=== PATIENT | female | born 1955 | race Two or more races ===

== ENCOUNTER 2018-09-08 08:47 | Day surgery (SDC) | payer BC ==
[~2018-09-08] VITALS: Ht 154.9 cm; Wt 68.0 kg
[~2018-09-08 08:47] MED LIST: CALCIUM500 M3 PO; FISH OIL OMEGA1 EAC1 PO; MULTIVITAMINS1 EAC2 ORAL; prevacid PO; vit d PO
[2018-09-08] MEDS ORDERED: PROBIOTIC1 EAC2 PO (09:50)
[2018-09-08 10:01] VITALS: BP 124/72
--- NOTE | 2018-09-08 10:14 | Pre-Procedure Note/Attestation ---
Pre-Procedure Note/Attestation Complete Prior to Procedure Planned Procedure: not applicable Procedure Narrative: esophagogastroduodenoscopy AND COLONOSCOPY Indications for Procedure Pre-Operative Diagnosis: screening colon, GERD Attestation I attest that I discussed the nature of the procedure; its benefits; risks and complications; and alternatives (and the risks and benefits of such alternatives ), prior to the procedure, with the patient (or the patient's legal sales representative printing paper). I attest that, if there was a reasonable possibility of needing a blood transfusion, the patient (or the patient's legal sales representative printing paper) was given the [facility] standardized written summary, pursuant to the [place] Blood Safety Act ([place] Health and Safety Code # 1645, as amended). I attest that I re-evaluated the patient just prior to the surgery and that there has been no change in the patient's H&P, except as documented below: Galileo Yadav MD Sep 08, 2018 10:14
--- NOTE | 2018-09-08 10:15 | Short Stay Surgery H&P ---
History of Present Illness History of Present Illness Chief Complaint screening colon, melena HPI Zuly Mascorro is a 62 year old female who was admitted on for Abdominal Pain, Colon Screening Patient History Allergies: Coded Allergies: No Known Allergies (Unverified , 09/08/18) PAST MEDICAL HISTORY: (1) GERD (gastroesophageal reflux disease) Medication History Scheduled Calcium Carbonate (Calcium), 500 MG PO DAILY, (Reported) Lactobacillus Acidophilus (Probiotic), 1 EACH PO DAILY, (Reported) Multivitamins* (Multivitamins*), 1 TAB ORAL DAILY, (Reported) [place]-3/Dha/Epa/Fish Oil (Fish Oil [place]-3 Softgel), 1 EACH PO DAILY, (Reported) [prevacid], 1 CAP PO DAILY, (Reported) [vit d], 2,000 PO DAILY, (Reported) Review of Systems Cardiovascular: Reports: no symptoms Respiratory: Reports: no symptoms Skeletal: Reports: no symptoms Gastrointestinal: Reports: gastro esophageal reflux disease Genitourinary: Reports: no symptoms Neurologic: Reports: no symptoms Endocrine: Reports: no symptoms Hematologic: Reports: no symptoms Physical Exam Vital Signs Last Vital Signs Date Time Temp Pulse Resp B/P (MAP) Pulse Ox O2 Delivery O2 Flow Rate FiO2 09/08/18 10:02 Room Air 09/08/18 10:01 97.8 68 20 124/72 97 Skin: normal HENT: normal Heart: normal Lungs: normal Abdomen: normal Extremities: normal Plan Plan of Care esophagogastroduodenoscopy and colon Attestation Are the patient's medical conditions optimized for surgery? Attestation Response: yes Galileo Yadav MD Sep 08, 2018 10:15
[2018-09-08] MEDS ORDERED: fentaNYL 100 mcg/2 mL IV PRN ×2 (10:30→10:45)
[2018-09-08] MEDS ORDERED: DiphenhydrAMINE 50mg/ml Inj IVP PRN ×2 (10:30→10:45)
[2018-09-08] MEDS ORDERED: Midazolam 2mg/2ml Inj IVP PRN ×2 (10:30→10:45)
[2018-09-08] MEDS ORDERED: Atropine Inj 1mg/10ml Syr IV PRN ×2 (10:30→10:45)
[2018-09-08] MEDS ORDERED: Lidocaine 1% MPF 10mg/ml 5ml ONE (10:45)
[2018-09-08] MEDS ORDERED: Propofol 200mg/20ml IV ONE (10:45)
--- NOTE | 2018-09-08 10:46 | Anethesia Preoperative Eval ---
Anesthesia Pre-op PMH/ROS General Date of Evaluation: Sep 08, 2018 Time of Evaluation: 10:44 Anesthesiologist: nkechi ASA Score: ASA 2 Mallampati Score Class I : Soft palate, uvula, fauces, pillars visible Class II: Soft palate, uvula, fauces visible Class III: Soft palate, base of uvula visible Class IV: Only hard plate visible Mallampati Classification: Class II Surgeon: bev Diagnosis: gerd, colon screening Surgical Procedure: egd/colonoscopy Anesthesia History: none Social History: smoking - nonsmoker Family History: no anesthesia problems Allergies: Coded Allergies: No Known Allergies (Unverified , 09/08/18) Medications: see eMAR Patient NPO?: Yes Past Medical History Gastrointestinal/Genitourinary: Reports: GERD PSxH Narrative: tonsillectomy Anesthesia Pre-op Phys. Exam Physician Exam Last Vital Signs Date Time Temp Pulse Resp B/P (MAP) Pulse Ox O2 Delivery O2 Flow Rate FiO2 09/08/18 10:02 Room Air 09/08/18 10:01 97.8 68 20 124/72 97 Constitutional: NAD Neurologic: CN 2-12 intact Cardiovascular: RRR Respiratory: CTA Gastrointestinal: S/NT/ND Airway Exam Mallampati Score: Class II MO: full Neck: flexible TMD: 2fb ROM: full Anesthesia Pre-op A/P Studies Pre-op Studies: EKG - nsr Risk Assessment & Plan Assessment: asa2 Plan: mac Status Change Before Surgery: No Pre-Antibiotics Drug: Belkis Gold MD Sep 08, 2018 10:46
--- NOTE | 2018-09-08 11:28 | Endoscopy Procedure Note ---
Endoscopy Procedure Note General Indication for Procedure: escreening colon, GERD Procedures Performed: EGD, colonoscopy Operative Findings/Diagnosis: 2 colon polyps Specimen: yes Pt Tolerated Procedure Well: Yes Estimated Blood Loss: none Anesthesia Anesthesiologist: nkechi Anesthesia: MAC Inserted Devices Implant(s) used?: No Quality Quality of Bowel Preparation: Good Did scope reach the cecum?: Yes Was there any complications?: No GI Core Measures 50 yrs or older w/o bx or poly: No 10yrs. F/U not recommended: Yes If not recommended, why?: Above average risk 10 yrs. F/U needed: Yes 18 years or older w/prev. colo: No Galileo Yadav MD Sep 08, 2018 11:28
[2018-09-08 11:34] VITALS: BP 94/59
[2018-09-08 11:39] VITALS: BP 105/64
[2018-09-08 11:44] VITALS: BP 111/62
--- NOTE | 2018-09-08 11:49 | Immediate Post-Op Evaluation ---
Immediate Post-Op Evalulation Immediate Post-Op Evalulation Procedure: egd/colonoscopy/bx Date of Evaluation: Sep 08, 2018 Time of Evaluation: 11:46 IV Fluids: 350ml 0.9ns Blood Products: none Estimated Blood Loss: negligible Blood Pressure Systolic: 94 Blood Pressure Diastolic: 69 Pulse Rate: 70 Respiratory Rate: 18 O2 Sat by Pulse Oximetry: 100 Temperature (Fahrenheit): 97.3 Pain Score (1-10): 0 Nausea: No Vomiting: No Complications none Patient Status: awake, reacts, patent Hydration Status: adequate Drug: Belkis Gold MD Sep 08, 2018 11:49
--- NOTE | 2018-09-08 11:51 | 48 Hour Post Anesthesia Eval ---
Post Anesthesia Evaluation Procedure: egd/colonoscopy/bx Date of Evaluation: Sep 08, 2018 Time of Evaluation: 11:49 Blood Pressure Systolic: 103 0: 66 Pulse Rate: 69 Respiratory Rate: 18 Temperature (Fahrenheit): 97.3 O2 Sat by Pulse Oximetry: 100 Airway: patent Nausea: No Vomiting: No Pain Intensity: 0 Hydration Status: adequate Cardiopulmonary Status: stable Mental Status/LOC: patient returned to baseline Post-Anesthesia Complications: none Follow-up care needed: N/A Belkis Schilling MD Sep 08, 2018 11:51
[2018-09-08 11:59] VITALS: BP 138/79
[2018-09-08 12:15] VITALS: BP 134/80
--- NOTE | 2018-09-08 16:15 | Procedure Note ---
DATE OF PROCEDURE: 09/08/2018 SURGEON: Galileo Yadav M.D. PROCEDURE: Upper endoscopy with biopsy and colonoscopy with biopsy. ANESTHESIA: Per Dr. Farley. INSTRUMENT: Olympus adult flexible upper endoscope and colonoscope. INDICATION: Screening colonoscopy evaluation, chronic GERD. REASON FOR PROCEDURE: The procedure, risks, benefits, and possible consequences, including hemorrhage, aspiration, perforation and infection, and alternative treatments, were explained to the patient/legal guardian by Dr. Galileo Yadav and the patient/legal guardian understood and accepted these risks. PROCEDURE IN DETAIL: After informed consent was obtained and the patient was adequately sedated, Olympus upper endoscope was advanced from the mouth into the second portion of duodenum and retroflexion was performed in the stomach. The patient had evidence of diffuse gastritis. Random biopsy from antrum and body was obtained to rule out H. pylori infection. Otherwise, the rest of upper endoscopic examination was grossly within normal limits. At this time, the upper endoscope was retrieved and the patient was turned over for colonoscopy. First, rectal exam was performed which was normal. Then, the scope was advanced from rectum into the cecum and then subsequently into terminal ileum. Quality of prep overall was good. The patient had two polyps, one in the ascending colon, measured roughly about 5 to 6 mm removed with the cold biopsy forceps technique. There was another diminutive polyp in the rectosigmoid area, removed with the cold biopsy forceps technique. The rest of the examination grossly within limits. No obvious bleeding. No obvious mass. Retroflexion of rectum showed evidence of small nonbleeding internal hemorrhoids. SUMMARY OF FINDINGS: 1. Gastritis, status post biopsy to rule out H. pylori infection. 2. Two colonic polyps removed, see above for details. 3. Internal hemorrhoids. RECOMMENDATIONS: 1. Followup biopsy results and treat accordingly. 2. We will recommend repeat colonoscopy in 5 years. Galileo Yadav M.D. DR: Ayaan JOB#: [id number] CC:
== END 2018-09-08 12:25 | disposition home or self-care (01) ==
LOC: GAS 08:47
DX: Z12.11 Encounter for screening for malignant neoplasm of colon (principal); K21.9 Gastro-esophageal reflux disease without esophagitis; K63.5 Polyp of colon; K64.8 Other hemorrhoids; K29.50 Unspecified chronic gastritis without bleeding; D12.5 Benign neoplasm of sigmoid colon
CPT/HCPCS: 43239; 45380; 93005; J2704; 94003; 94150